=== PATIENT | female | born 1995 | race Two or more races ===

== ENCOUNTER → 2025-04-05 | Outpatient (CLI) | payer MEDICAID, SELFPAY ==
--- NOTE | 2025-04-05 09:23 | XR_ITS ---
Examination: Attempted hysterosalpingogram AP pelvis single view Date and time: April 05, 2025, 1054 hours INDICATIONS: Infertility FINDINGS: The patient exhibited significant pain and guarding attempting to place the speculum The patient expelled the speculum repeatedly precluding successful cannulation of the uterus IMPRESSION: The patient could not cooperate for successful hysterosalpingogram
[2025-04-05 10:01] LABS: HCG,Qualitative Serum Negative
== END | disposition home or self-care (01) ==
LOC: SDIM 08:56
PROVIDERS: Referring Provider Physician Assistant; Visit Provider Physician Assistant
DX: N97.9 Female infertility, unspecified (principal)
CPT/HCPCS: 58340; 36415; 74740; 84703; Q9967